=== PATIENT | male | born 1990 | race Caucasian/White ===

== ENCOUNTER 2018-06-28 14:36 | Emergency (ER) | payer SELFPAY ==
[~2018-06-28] VITALS: Ht 167.6 cm; Wt 84.7 kg
[2018-06-28 14:44] VITALS: Ht 167.6 cm; Wt 84.7 kg
[2018-06-28] MEDS ORDERED: DIPHTH/TET/ACEL PERTUSS (ADULT) 0.5 ML VIAL IM* ONE (18:30)
[2018-06-28] MEDS ORDERED: LIDOCAINE 1% (MPF) 5 ML VIAL INFIL ONE (18:30)
[2018-06-28] MEDS ORDERED: HYDROCODONE/APAP (5/325) TAB PO ONE ×2 (18:30→22:00)
[2018-06-28] MEDS ORDERED: NAPR-985 PO (20:50)
[2018-06-28] MEDS ORDERED: TRAM50TA2 PO (20:50)
[2018-06-28] MEDS ORDERED: BACITRACIN 0.9 GM OINT TOP ONE (21:00)
[2018-06-28] MEDS ORDERED: KETOROLAC 60 MG INJ IM STA (21:35)
[2018-06-28] MEDS ORDERED: HYDR-4011 PO (22:19)
[2018-06-28 22:35] VITALS: BP 167/116; PULSE 101; RESP 20
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
== END 2018-06-28 22:36 | disposition home or self-care (01) ==
LOC: FTE 14:36
DX: S52.602A Unspecified fracture of lower end of left ulna, initial encounter for closed fracture (principal); S01.01XA Laceration without foreign body of scalp, initial encounter; S01.81XA Laceration without foreign body of other part of head, initial encounter; Y09 Assault by unspecified means; Z23 Encounter for immunization
CPT/HCPCS: 12001; 12011; 29125; 73090; 90471; 90715; 96372; 99284; J1885

== ENCOUNTER 2018-07-05 13:37 | Emergency (ER) | payer SELFPAY ==
[~2018-07-05] VITALS: Ht 170.2 cm; Wt 85.7 kg
[~2018-07-05 13:37] MED LIST: HYDR-4011 PO; NAPR-985 PO
[2018-07-05 13:43] VITALS: BP 176/113; PULSE 103; RESP 20; Ht 170.2 cm; Wt 85.7 kg
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
== END 2018-07-05 14:49 | disposition home or self-care (01) ==
LOC: FTE 13:37
DX: Z48.02 Encounter for removal of sutures (principal)
CPT/HCPCS: 99281